=== PATIENT | female | born 1970 | race Caucasian/White ===

== ENCOUNTER 2024-09-09 08:16 | Emergency (ER) | payer MEDICAID ==
[~2024-09-09] VITALS: Ht 152.4 cm; Wt 55.9 kg
[2024-09-09 08:30] VITALS: BP 112/68; O2SAT 97
[2024-09-09 10:52] VITALS: PULSE 78; RESP 14; TEMP 97.8
== END 2024-09-09 10:43 | disposition home or self-care (01) ==
LOC: ER 08:17
DX: S52.572A Other intraarticular fracture of lower end of left radius, initial encounter for closed fracture (principal); Z88.0 Allergy status to penicillin; Z88.5 Allergy status to narcotic agent; W01.0XXA Fall on same level from slipping, tripping and stumbling without subsequent striking against object, initial encounter; Y93.89 Activity, other specified; Y92.89 Other specified places as the place of occurrence of the external cause; Y99.8 Other external cause status
CPT/HCPCS: 29125; 73110; 99284; A4565; A6446; A6449